=== PATIENT | female | born 2000 | race Caucasian/White ===

== ENCOUNTER 2023-02-27 08:40 | Outpatient (AMB) | payer BC, SELFPAY ==
[2023-02-27 08:49] VITALS: BP 110/62; PULSE 104; O2SAT 95; BMI 29.4
--- NOTE | 2023-02-27 08:49 | A.OFFPC_ITS ---
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 Previous -PCP was Dr. Camarillo. 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 Accompanied by: Self / Same As Patient Is last menstrual period known: Yes Last menstrual period: 02/22/23 Allergies No Known Allergies Allergy (Verified 02/27/23 09:02) Medication List - Last Reconciled 02/27/23 by Alexandra Gillette MD No Known Home Meds Tobacco use date assessed: 02/27/23 Dental Screening Dental Screen Date: 02/27/23 Did you have a dental visit in the last 12 months?: No Did you have a dental problem in the last 6 months where you did not have access to dental care?: No Was dental information given to patient?: Yes HPI HPI Comments History of Present Illness Details This is a 22-year-old female that comes for her physical exam. Complains of painful menstrual periods. No chest pain or shortness of breath. Has never had a Pap smear and will be referred to OBGYN. Also has moderate major depression and will be referred to counseling. No suicidal thoughts. [facility], [facility] Medical History Obesity (BMI 30-39.9) Surgical History No history of previous surgery Family History Mother No problems noted. Father High blood pressure Anxiety Hx of heat stroke Depression Paternal Grandmother Breast cancer Maternal Grandmother Breast cancer Social History (Updated 02/27/23 @ 09:05 by Alexandra Gillette MD) Housing: House Alcohol intake: current Alcohol intake frequency: a few times a month Alcohol type: beer and hard liquor Patient Tobacco Use Status: Never used Tobacco e-Cigarette/Vaping Use: Former Use service: No Current occupational status: employed Cognitive needs: No Hearing needs: No Vision needs: No Female Reproductive History Menstrual Date of last menstrual period: 02/22/23 Questionnaire PHQ-9 Over the last 2 weeks, how often have you been bothered by any of the following problems? 1. Little interest or pleasure in doing things: several days 2. Feeling down, depressed, or hopeless: more than half the days 3. Trouble falling or staying asleep, or sleeping too much: several days 4. Feeling tired or having little energy: nearly every day 5. Poor appetite or overeating: nearly every day 6. Feeling bad about yourself - or that you are a failure or have let yourself or your family down: nearly every day 7. Trouble concentrating on things, such as reading the newspaper or watching television: nearly every day 8. Moving or speaking so slowly that other people could have noticed. Or the opposite - being so fidgety or restless that you have been moving around a lot more than usual: not at all 9. Thoughts that you would be better off or of hurting yourself in some way: not at all Total score: 16 Depression Screening Interpretation: Positive (no suicidal thoughts) 68047 - PHQ-9 Billing: Yes Source: Developed by Drs. Jj Bellamy, Chayito Richardson, Viral Quesada and colleagues, with an educational ame from [employer]. Thrive Questionnaire Date Thrive assessed: 02/27/23 I am a: Patient What is your living situation today?: I have a steady place to live Within the past 12 months, did the food you bought not last and you didn't have the money to get more?: Never true Within the past 12 months, did you worry whether your food would run out before you got money to buy more?: Never true Do you have trouble paying for medicines?: No Do you have trouble getting transportation to medical appointments?: No Do you have trouble paying your heating and electricity bill?: No Do you have trouble taking care of your child, family member or friend?: No Do you have trouble with day-to-day activities such as bathing, preparing meals, shopping, managing finances, etc.?: No Are you currently unemployed and looking for a job?: No Are you interested in more education?: No Please select the resources that you would like help with: None Currently or been in a relationship where the following occur: no concerns reported AUDIT C Alcohol Use Questionnaire (AUDIT-C) 1. How often do you have a drink containing alcohol?: Monthly or less 2. How many drinks containing alcohol do you have on a typical day when you are drinking?: 3 or 4 3. How often do you have six or more drinks on one occasion?: Less than monthly Total Score: 3 Score Reviewed/Action Taken: Yes LIZETTE-7 AMB Questionnaire LIZETTE-7 Date LIZETTE - 7 assessed: 02/27/23 Feeling nervous, anxious, or on edge: 3 = Nearly every day Not being able to stop or control worryin = Nearly every day Worrying too much about different things: 3 = Nearly every day Trouble relaxin = More than half the days Being so restless that it is hard to sit still: 3 = Nearly every day Becoming easily annoyed or irritable: 3 = Nearly every day Feeling afraid as if something awful might happen: 2 = More than half the days Total LIZETTE-7 score (0-4 normal; 5-9 mild; 10-14 moderate; 15-21 severe): 19 Source: Developed by Drs. Jj Bellamy, Chayito Richardson, Viral Quesada and colleagues, with an educational ame from [employer]. LIZETTE-7 Assessment Billing LIZETTE-7 Assessment Tool: LIZETTE-7 Assessment 09817 Review of Systems Const All systems reviewed & are unremarkable except as noted in HPI and below Eyes Reports no additional complaints, Denies change in vision and Denies other visual disturbances Card Denies chest pain at rest, Denies chest pain with activity, Denies edema, Denies irregular heart rhythm, Denies claudication, Denies dyspnea, Denies dyspnea on exertion, Denies orthopnea, Denies paroxysmal nocturnal dyspnea and Denies slow heart rate Resp Denies cough, Denies dyspnea and Denies dyspnea on exertion GI Denies abdominal pain, Denies change in bowel habits, Denies excessive flatus, Denies nausea and Denies vomiting Denies urinary incontinence, Denies urinary hesitancy and Denies urinary urgency Musc Denies abnormal gait, Denies atrophy, Denies deformity and Denies limited range of motion Skin/Breast Denies bleeding lesions, Denies changing lesions and Denies rash Neuro Denies abnormal gait and Denies lack of coordination Physical exam (Primary Care) Vital Signs: Last Vital Signs Pulse 104 H 02/27/23 08:49 BP 110/62 02/27/23 08:49 Pulse Ox 95 02/27/23 08:49 Oxygen Delivery Method Room Air 02/27/23 08:49 BMI result Body Mass Index 29.4 Tobacco/Smoking Status: Tobacco use Status Tobacco use date assessed 02/27/23 02/27/23 08:58 Patient Tobacco Use Status Never used Tobacco 02/27/23 09:05 e-Cigarette/Vaping Use Former Use 02/27/23 09:05 PHQ-9: PHQ-9 Score PHQ-9: Total score 16 02/27/23 09:21 Depression Screening Interpretation: Positive (no suicidal thoughts) Thrive Assessment: Date of Thrive Assessment Date Thrive assessed 02/27/23 02/27/23 08:58 Currently or been in a relationship where the following occur: no concerns reported Const Orientation/consciousness: patient oriented x3 Eyes General: appearance normal, both eyes and all related structures Eyelids: Yes eyelids normal Conjunctivae: conjunctivae normal Neck Neck: Yes normal visual inspection and Yes supple Resp Effort & Inspection: normal respiratory effort Auscultation: clear to auscultation bilaterally Cardio Jugular venous distension: no JVD Rate: regular rate Rhythm: regular rhythm Heart sounds: S1 normal heart sound present and S2 normal heart sound present GI Inspection: Yes normal to inspection Palpation (GI): Soft to palpation and nontender Auscultation: normal bowel sounds Skin General skin exam: no rashes or lesions noted Neuro General: patient oriented x3 and no focal motor deficits Extrem General: Yes full ROM Psych Appearance: grossly normal Assessment and Plan Assessment & Plan (1) Annual physical exam: Code(s): Z00.00 - Encounter for general adult medical examination without abnormal findings Plan: Repeat in a year (2) Moderate major depression: Code(s): F32.1 - Major depressive disorder, single episode, moderate Plan: Referred to counseling. Orders: Referrals Counseling Referral F32.1 - Major depressive disorder, single episode, moderate SYNTHETIC FILAMENT SPINNER Referral Z12.4 - Encounter for screening for malignant neoplasm of cervix Medications: New nabumetone 750 mg PO BID 60 tabs 0RF 30 days Coding Level of Care Code Est Pt Prev Care 18-39y(83153) Diagnoses Annual physical exam Z00.00 Moderate major depression F32.1 Additional Codes LIZETTE-7 Assessment Billing - LIZETTE-7 Assessment Tool: LIZETTE-7 Assessment 75535 ([id number]) Time Spent (min) 33
== END 2023-02-27 09:13 | disposition home or self-care (01) ==
PROVIDERS: PCP Internal Medicine; Visit Provider Internal Medicine
DX: Z00.00 Encounter for general adult medical examination without abnormal findings (principal); F32.1 Major depressive disorder, single episode, moderate
CPT/HCPCS: 99395

== ENCOUNTER 2023-05-29 13:17 | Outpatient (AMB) | payer BC, SELFPAY ==
--- NOTE | 2023-05-29 13:46 | A.OFFVIS_ITS ---
Intake Vital Signs 05/29/23 13:47 Height 5 ft 3.5 in Weight 166 lb BMI 28.9 Intake Visit Reasons: New patient Annual Intake Note: Bad cramps when on menses. 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 She says she had a gap in care from about [age] but before that she went to her [facility]. She does not know if she got the Gardasil vaccine. She has been sexually active in the past but has not been so for a couple months. She is open to being tested for STIs. She is not sexually active and so does not need anything from for control for or that however she does want to talk about her periods which are getting more uncomfortable and crampier. She wants to find out about all the different control methods. She works at [employer] she lives with her father and stepmother she met Dr. Lopez once and she does not have any other health concerns she does not smoke. Physically active at her job and she walks her dog. [facility] Medical History Obesity (BMI 30-39.9) Surgical History No history of previous surgery Family History Mother No problems noted. Father High blood pressure Anxiety Hx of heat stroke Depression Paternal Grandmother Breast cancer Maternal Grandmother Breast cancer Social History Housing: House Alcohol intake: current Alcohol intake frequency: a few times a month Alcohol type: beer and hard liquor Patient Tobacco Use Status: Never used Tobacco e-Cigarette/Vaping Use: Former Use service: No Current occupational status: employed Cognitive needs: No Hearing needs: No Vision needs: No Female Reproductive History Menstrual Age of Menarche: 12 Duration of menses: 3-5 days Date of last menstrual period: 05/24/23 control method: none Total pregnancies: 0 Physical Exam Vital Signs: BMI result Body Mass Index 28.9 Const General: healthy appearing, comfortable, no acute distress, well developed and alert Nutritional Appearance: average body habitus Orientation/consciousness: patient oriented x3 Limitations: no limitations HEENT Head: Yes normocephalic Neck Neck: Yes normal visual inspection Thyroid: Thyroid normal Chest Chest palpation & inspection: normal inspection of the chest Breast/axilla inspection: normal inspection of the breasts and normal inspection of the axillae Breast/axilla palpation: normal palpation of the breasts and normal palpation of the axillae Resp Effort & Inspection: normal respiratory effort GI Inspection: Yes normal to inspection, No Abdominal wall edema and No distended Palpation (GI): Soft to palpation and nontender Other: Speculum exam within normal limits vagina pink moist with end of menses cervix nulliparous long close pink smooth very posterior and deep in pelvis uterus anteverted mobile nontender difficult to feel completely secondary to position adnexa not enlarged nontender good tone with Kegel. General: Yes bladder normal to palpation External Female Exam: normal external appearance and normal appearance of the urethra Speculum Exam - Vagina: normal appearance of the vagina, normal palpation and normal vaginal discharge Speculum Exam - Cervix: normal appearance of the cervix, normal palpation and nontender Bimanual exam- vagina & uterus: normal bimanual exam, normal palpation, uterine size normal, bladder normal to palpation, consistency normal, normal palpation, uterine mobility normal, uterine shape normal, No Cervical tenderness present, non-tender and no cervical motion tenderness Bimanual Exam- Adnexa, other: normal adnexae, no masses, normal and No adnexal tenderness Neuro General: patient oriented x3 Assessment & Plan Assessment & Plan (1) Screening for cervical cancer: Comment: first pap done 05/29/23. Patient will check to see if she got the Gardasil vaccine. Code(s): Z12.4 - Encounter for screening for malignant neoplasm of cervix (2) BCP ( control pills) initiation: Code(s): Z30.011 - Encounter for initial prescription of contraceptive pills (3) Encounter for screening examination for sexually transmitted disease: Code(s): Z11.3 - Encounter for screening for infections with a predominantly sexual mode of transmission (4) Primary dysmenorrhea: Code(s): N94.4 - Primary dysmenorrhea (5) Well woman exam with routine gynecological exam: Code(s): Z01.419 - Encounter for gynecological examination (general) (routine) without abnormal findings Plan -----Discussed in this visit the following: healthy balanced diet, regular and consistent exercise, getting recommended health screens, doing the best she can for her particular health concerns, kegel exercises, pap smear screening and followup recommendations, mammography screening and SBE, normal changes in cycles in her life stage--- .-I reviewed with the patient, all of the currently common used methods of control that are available. We reviewed how they work in the body, how they are taken, common side effects, uncommon side effects, precautions, and contraindications. -Discussed also factors that influence their effectiveness and use, and womens satisfaction with the method. -Discussed how each are used, and drawbacks of each method as well. -Methods covered included: condoms, control pills, control patches, control rings, Depo-Provera, Nexplanon, Mirena and Kyleena IUDs, and ParaGard IUDs. All of the above methods were covered in great detail including their side effect profiles and common experiences that women have and ways to mitigate against the negative experiences including attention to diet and exercise patient's with bleeding challenges that may occur her and efforts to time the initiation of the method to this start of the menstrual period. She decided that she would like to try pills. She is on day 6 of her period now and it is in dating so unless she was able to cone picker the pills on the way to work today and start them now it would be late to pick them up and start them tomorrow. She may want to wait till her next period to start the pills within the 1st 3 days of her. Discussed the rationale for starting them at the beginning of the. And expected and unexpected side effects including danger signs and what to do if she ever did experience anything like that. She is no family history of clotting disorders as far she knows. Both of her grandmothers had breast cancer, discussed breast cancer screening. I also recommend she consider getting tested for STIs as she does not think she ever has been so test ordered in system she can go when she wishes she is on the portal so she could look up negative results that way we would call her for anything positive. I prescribed enough control pills for year but we will see her in about 3 months to see how she is doing and check her blood pressure. She is going to check to see if she got the Gardasil vaccine and I recommend that she consider getting it if she has not gotten it. Note when ordering her control pills a warning came up that she had the contraindication of major depression however that is not on her medical chart in the history currently and even if it were current issue would not be an absolute contraindication to starting control pills. Orders: Orders CT NG by PCR Today Z11.3 - Encounter for screening for infections with a predominantly sexual mode of transmission Pap Smear Today Z12.4 - Encounter for screening for malignant neoplasm of cervix Hepatitis C Antibody Today N94.4 - Primary dysmenorrhea, Z01.419 - Encounter for gynecological examination (general) (routine) without abnormal findings, Z11.3 - Encounter for screening for infections with a predominantly sexual mode of transmission, Z12.4 - Encounter for screening for malignant neoplasm of cervix, Z30.011 - Encounter for initial prescription of contraceptive pills HIV Ab/Ag Today N94.4 - Primary dysmenorrhea, Z01.419 - Encounter for gynec ological examination (general) (routine) without abnormal findings, Z11.3 - Encounter for screening for infections with a predominantly sexual mode of transmission, Z12.4 - Encounter for screening for malignant neoplasm of cervix, Z30.011 - Encounter for initial prescription of contraceptive pills Syphilis Screen Today N94.4 - Primary dysmenorrhea, Z01.419 - Encounter for gynecological examination (general) (routine) without abnormal findings, Z11.3 - Encounter for screening for infections with a predominantly sexual mode of transmission, Z12.4 - Encounter for screening for malignant neoplasm of cervix, Z30.011 - Encounter for initial prescription of contraceptive pills Bacterial Vaginosis Panel Today Z20.2 - Contact with and (suspected) exposure to infections with a predominantly sexual mode of transmission Hepatitis B Surface Antigen Today N94.4 - Primary dysmenorrhea, Z01.419 - Encounter for gynecological examination (general) (routine) without abnormal findings, Z11.3 - Encounter for screening for infections with a predominantly sexual mode of transmission, Z12.4 - Encounter for screening for malignant neoplasm of cervix, Z30.011 - Encounter for initial prescription of contraceptive pills Medications: New desog-e.estradiol/e.estradiol 0.15-0.02 mgx21 /0.01 mg x 5 1 tab PO DAILY 84 tabs 4RF Coding Level of Care Code New Pt Prev Care 18-39yr([id number] Diagnoses Screening for cervical cancer Z12.4 BCP ( control pills) initiation Z30.011 Encounter for screening examination for sexually transmitted disease Z11.3 Primary dysmenorrhea N94.4 Well woman exam with routine gynecological exam Z01.419
[2023-05-29 13:47] VITALS: BMI 28.9
== END 2023-05-29 15:07 | disposition home or self-care (01) ==
PROVIDERS: PCP Internal Medicine; Visit Provider Advanced Practice Midwife
DX: Z01.419 Encounter for gynecological examination (general) (routine) without abnormal findings (principal); N94.4 Primary dysmenorrhea
CPT/HCPCS: 99385

== ENCOUNTER 2023-05-29 13:17 | Outpatient (REF) | payer BC, SELFPAY ==
[2023-05-30 10:54] LABS: CT PCR NOT DETECTED (Not Detect.); NG PCR NOT DETECTED (Not Detect.)
[2023-05-30 14:22] LABS: BV Int Neg Control Negative (Negative); BV Int Pos Control Positive (Positive)
== END 2023-05-29 13:18 | disposition home or self-care (01) ==
LOC: HO.LNP 13:17
PROVIDERS: PCP Internal Medicine; Visit Provider Advanced Practice Midwife
DX: Z12.4 Encounter for screening for malignant neoplasm of cervix (principal); Z20.2 Contact with and (suspected) exposure to infections with a predominantly sexual mode of transmission; N94.4 Primary dysmenorrhea
CPT/HCPCS: 0353U; 87480; 87510; 87660; 88142

== ENCOUNTER 2023-08-28 07:57 | Outpatient (AMB) | payer BC, SELFPAY ==
--- NOTE | 2023-08-28 07:58 | A.OFFPC_ITS ---
Vital Signs 08/28/23 07:59 Height 5 ft 3.5 in Weight 163 lb BMI 28.4 BP 110/72 Blood Pressure Location Lt brachial Position Sitting Intake Visit Reasons: depression Intake Note: Patient here for a follow up depression Electronic Wirer Required: No Accompanied by: Self / Same As Patient Allergies No Known Allergies Allergy (Verified 08/28/23 08:15) Medication List - Last Reconciled 08/28/23 by Alexandra Gillette MD desog-e.estradiol/e.estradiol 0.15-0.02 mgx21 /0.01 mg x 5 1 tab PO DAILY Tobacco use date assessed: 08/28/23 Dental Screening Dental Screen Date: 08/28/23 Did you have a dental visit in the last 12 months?: No Did you have a dental problem in the last 6 months where you did not have access to dental care?: No Was dental information given to patient?: Patient has dentist HPI HPI Comments History of Present Illness Details This is a 22-year-old female with moderate major depression that complains of easy bruising that started few months ago. Her depression has markedly improved with counseling that she started May 2023. Will order CBC for her easy bruising. No chest pain or shortness of breath. No change in bowel or bladder habits. [facility] Medical History (Updated 08/28/23 @ 08:21 by Alexandra Gillette MD) Potential exposure to STD Obesity (BMI 30-39.9) Surgical History No history of previous surgery Family History Mother No problems noted. Father High blood pressure Anxiety Hx of heat stroke Depression Paternal Grandmother Breast cancer Maternal Grandmother Breast cancer Social History Housing: House Alcohol intake: current Alcohol intake frequency: a few times a month Alcohol type: beer and hard liquor Patient Tobacco Use Status: Never used Tobacco e-Cigarette/Vaping Use: Former Use Second Hand Smoke Exposure: No service: No Current occupational status: employed Current occupational exposures/hazards: No Cognitive needs: No Hearing needs: No Vision needs: No Female Reproductive History Menstrual Age of Menarche: 12 Questionnaire PHQ-9 Over the last 2 weeks, how often have you been bothered by any of the following problems? 1. Little interest or pleasure in doing things: not at all 2. Feeling down, depressed, or hopeless: not at all 3. Trouble falling or staying asleep, or sleeping too much: not at all 4. Feeling tired or having little energy: not at all 5. Poor appetite or overeating: not at all 6. Feeling bad about yourself - or that you are a failure or have let yourself or your family down: not at all 7. Trouble concentrating on things, such as reading the newspaper or watching television: not at all 8. Moving or speaking so slowly that other people could have noticed. Or the opposite - being so fidgety or restless that you have been moving around a lot more than usual: not at all 9. Thoughts that you would be better off or of hurting yourself in some way: not at all Total score: 0 Depression Screening Interpretation: Negative Depression Screening Done: Yes 16254 - PHQ-9 Billing: Yes Source: Developed by Drs. Jj Bellamy, Chayito Richardson, Viral Quesada and colleagues, with an educational ame from [employer]. Thrive Questionnaire Date Thrive assessed: 08/28/23 I am a: Patient What is your living situation today?: I have a steady place to live Within the past 12 months, did the food you bought not last and you didn't have the money to get more?: Never true Within the past 12 months, did you worry whether your food would run out before you got money to buy more?: Never true Do you have trouble paying for medicines?: No Do you have trouble getting transportation to medical appointments?: No Do you have trouble paying your heating and electricity bill?: No Do you have trouble taking care of your child, family member or friend?: No Do you have trouble with day-to-day activities such as bathing, preparing meals, shopping, managing finances, etc.?: No Are you currently unemployed and looking for a job?: No Are you interested in more education?: No Please select the resources that you would like help with: None Currently or been in a relationship where the following occur: no concerns reported THRIVE Score: 0 AUDIT C Alcohol Use Questionnaire (AUDIT-C) 1. How often do you have a drink containing alcohol?: Monthly or less 2. How many drinks containing alcohol do you have on a typical day when you are drinking?: 1 or 2 3. How often do you have six or more drinks on one occasion?: Never Total Score: 1 LIZETTE-7 AMB Questionnaire LIZETTE-7 Date LIZETTE - 7 assessed: 08/28/23 Feeling nervous, anxious, or on edge: 2 = More than half the days Not being able to stop or control worryin = More than half the days Worrying too much about different things: 1 = Several days Trouble relaxin = Several days Being so restless that it is hard to sit still: 2 = More than half the days Becoming easily annoyed or irritable: 1 = Several days Feeling afraid as if something awful might happen: 1 = Several days Total LIZETTE-7 score (0-4 normal; 5-9 mild; 10-14 moderate; 15-21 severe): 10 Source: Developed by Drs. Jj Bellamy, Chayito Richardson, Viral Quesada and colleagues, with an educational ame from [employer]. LIZETTE-7 Assessment Billing LIZETTE-7 Assessment Tool: LIZETTE-7 Assessment 55178 Review of Systems Const All systems reviewed & are unremarkable except as noted in HPI and below Eyes Reports no additional complaints, Denies change in vision and Denies other visual disturbances Card Denies chest pain at rest, Denies chest pain with activity, Denies edema, Denies irregular heart rhythm, Denies claudication, Denies dyspnea, Denies dyspnea on exertion, Denies orthopnea, Denies paroxysmal nocturnal dyspnea and Denies slow heart rate Resp Denies cough, Denies dyspnea and Denies dyspnea on exertion GI Denies abdominal pain, Denies change in bowel habits, Denies excessive flatus, Denies nausea and Denies vomiting Denies urinary incontinence, Denies urinary hesitancy and Denies urinary urgency Musc Denies abnormal gait, Denies atrophy, Denies deformity and Denies limited range of motion Skin/Breast Denies bleeding lesions, Denies changing lesions and Denies rash Neuro Denies abnormal gait, Denies behavioral changes and Denies lack of coordination Psych Denies behavioral changes Physical exam (Primary Care) Vital Signs: Last Vital Signs BP 110/72 08/28/23 07:59 BMI result Body Mass Index 28.4 Tobacco/Smoking Status: Tobacco use Status Tobacco use date assessed 08/28/23 08/28/23 08:09 Patient Tobacco Use Status Never used Tobacco 08/28/23 08:01 e-Cigarette/Vaping Use Former Use 08/28/23 08:01 PHQ-9: PHQ-9 Score PHQ-9: Total score 0 08/28/23 08:20 Depression Screening Interpretation: Negative Thrive Assessment: Date of Thrive Assessment Date Thrive assessed 08/28/23 08/28/23 08:09 Currently or been in a relationship where the following occur: no concerns reported Eyes General: appearance normal, both eyes and all related structures Eyelids: Yes eyelids normal Conjunctivae: conjunctivae normal Neck Neck: Yes normal visual inspection and Yes supple Resp Effort & Inspection: normal respiratory effort Auscultation: clear to auscultation bilaterally Cardio Jugular venous distension: no JVD Rate: regular rate Rhythm: regular rhythm Heart sounds: S1 normal heart sound present and S2 normal heart sound present Extrem General: Yes full ROM Assessment and Plan Assessment & Plan (1) Moderate major depression: Code(s): F32.1 - Major depressive disorder, single episode, moderate Plan: Continue counseling. (2) Easy bruising: Code(s): R23.3 - Spontaneous ecchymoses Plan: CBC ordered. Orders: Orders Complete Blood Count Auto Diff Today R23.3 - Spontaneous ecchymoses Lipid Panel 6 Months Z00.00 - Encounter for general adult medical examination without abnormal findings Comprehensive [place]. Panel Fast 6 Months Z00.00 - Encounter for general adult medical examination without abnormal findings Coding Level of Care Code Est Pt Level 3 (70738) Diagnoses Moderate major depression F32.1 Easy bruising R23.3 Additional Codes LIZETTE-7 Assessment Billing - LIZETTE-7 Assessment Tool: LIZETTE-7 Assessment 50960 ([id number]) Time Spent (min) 19
[2023-08-28 07:59] VITALS: BP 110/72; BMI 28.4
== END 2023-08-28 08:23 | disposition home or self-care (01) ==
PROVIDERS: PCP Internal Medicine; Visit Provider Internal Medicine
DX: R23.3 Spontaneous ecchymoses (principal); F32.1 Major depressive disorder, single episode, moderate
CPT/HCPCS: 99213

== ENCOUNTER 2023-08-28 08:28 | Outpatient (REF) | payer BC, SELFPAY ==
[2023-08-28 08:52] LABS: MANUAL DIFF FLAG NO
[2023-08-28 09:33] LABS: Basophils Absolute Auto 0.1 X10*3/uL (0.0-0.2); Basophils Percent Auto 0.9 % (0-2); Eosinophils Absolute Auto 0.5 X10*3/uL (0.0-0.4); Hematocrit 40.4 % (37.0-47.0); Hemoglobin 13.6 g/dl (12.0-16.0); Imm Gran Abs Auto 0.01 X10*3/uL (0.00-0.03); Imm Gran Pct Auto 0.2 % (0.0-0.4); Lymphocytes Absolute Auto 1.5 X10*3/uL (1.2-4.9); Lymphocytes Percent Auto 28.2 % (20-40); Mean Corpuscular HGB Conc 33.7 g/dl (31.0-35.0); Mean Corpuscular Hemoglobin 30.4 pg (27.0-33.0); Mean Corpuscular Volume 90.2 fL (80.0-98.0); Mean Platelet Volume 10.5 fL (9.4-12.3); Monocytes Absolute Auto 0.4 X10*3/uL (0.1-1.2); Neutrophils Percent Auto 54.7 % (45-73); Platelet Count 251 X10*3/uL (160-400); Red Blood Count 4.48 X10*6/uL (4.20-5.50); Red Cell Distribution Width 11.9 % (11.0-16.0); White Blood Count 5.4 X10*3/uL (4.8-10.8)
== END 2023-08-28 08:29 | disposition home or self-care (01) ==
LOC: HO.LAB 08:28
PROVIDERS: PCP Internal Medicine; Visit Provider Internal Medicine
DX: R23.3 Spontaneous ecchymoses (principal)
CPT/HCPCS: 36415; 85025

== ENCOUNTER 2023-08-28 09:14 | Outpatient (AMB) | payer BC, SELFPAY ==
--- NOTE | 2023-08-28 09:22 | MHC.OFFVIS ---
Intake Vital Signs 08/28/23 09:27 Height 5 ft 3.5 in Weight 161 lb BMI 28.1 BP 116/68 Intake Visit Reasons: control follow up Oleomargarine Maker Required: No Allergies No Known Allergies Allergy (Verified 08/28/23 09:28) Medication List - Last Reconciled 08/28/23 by Marija Snell CNM desog-e.estradiol/e.estradiol 0.15-0.02 mgx21 /0.01 mg x 5 1 tab PO DAILY Is last menstrual period known: Yes Last menstrual period: 08/10/23 Do you need a note to return to daycare/school/sports/work: No HPI control follow up HPI Details Patient is here for control pill follow-up she feels she is doing really well on the pills she noticed an improvement even with the very 1st. She started the pills on day 2 of her period and immediately got less crampy unless heavy and she did not even need to take anything to deal with the cramps or pain and the next period was the same she did notice some more little clots she uses tampons but overall it is just 4 days and not very heavy and not painful she wants to stay on the pills she is happy on them she does not smoke and overall her periods are better she still does headaches with her menses but she always has. She said her stepmother told her that if she was on control pills and then stopped to try to get she would have trouble so she wanted to ask about that and told her that that was not true and discussed return to fertility after stopping pills can be immediate.. [facility] Medical History Potential exposure to STD Obesity (BMI 30-39.9) Surgical History No history of previous surgery Family History Mother No problems noted. Father High blood pressure Anxiety Hx of heat stroke Depression Paternal Grandmother Breast cancer Maternal Grandmother Breast cancer Social History Housing: House Alcohol intake: current Alcohol intake frequency: a few times a month Alcohol type: beer and hard liquor Patient Tobacco Use Status: Never used Tobacco e-Cigarette/Vaping Use: Former Use Second Hand Smoke Exposure: No service: No Current occupational status: employed Current occupational exposures/hazards: No Cognitive needs: No Hearing needs: No Vision needs: No Female Reproductive History Menstrual Age of Menarche: 12 Duration of menses: 3-5 days Date of last menstrual period: 08/10/23 control method: pills Total pregnancies: 0 Date of last pap smear: 05/31/23 (negative) History of abnormal pap smear: No Physical Exam Vital Signs: Last Vital Signs BP 116/68 08/28/23 09:27 BMI result Body Mass Index 28.1 Assessment & Plan Assessment & Plan (1) Primary dysmenorrhea: Code(s): N94.4 - Primary dysmenorrhea (2) Screening for cervical cancer: Comment: first pap done 05/29/23=negative. Patient will check to see if she got the Gardasil vaccine.; Code(s): Z12.4 - Encounter for screening for malignant neoplasm of cervix (3) Surveillance for control, oral contraceptives: Code(s): Z30.41 - Encounter for surveillance of contraceptive pills Plan See HPI reviewed control pills how she is taking them what to do if missed pills side effects to watch out for and danger signs and what to do. Reviewed stopping pills and return to fertility and why there is a quick return to fertility. Discussed vitamins with folic acid if she is ever planning a future . We will see her in 1 year and if she does not have a year's prescription I will send it. She had no further questions discussed safer sex as well discussed missed pills and what to do. Medications: Refilled desog-e.estradiol/e.estradiol 0.15-0.02 mgx21 /0.01 mg x 5 1 tab PO DAILY 84 tabs 4RF Coding Level of Care Code Est Pt Level 3 (14934) Diagnoses Primary dysmenorrhea N94.4 Screening for cervical cancer Z12.4 Surveillance for control, oral contraceptives Z30.41
[2023-08-28 09:27] VITALS: BP 116/68; BMI 28.1
== END 2023-08-28 10:12 | disposition home or self-care (01) ==
LOC: HO.HWSM 09:15
PROVIDERS: PCP Internal Medicine; Visit Provider Advanced Practice Midwife
DX: N94.4 Primary dysmenorrhea (principal); Z30.41 Encounter for surveillance of contraceptive pills
CPT/HCPCS: 99213

== ENCOUNTER 2024-02-28 10:04 | Outpatient (AMB) | payer OTHER, SELFPAY ==
[2024-02-28 10:14] VITALS: BP 110/68; BMI 25.0
--- NOTE | 2024-02-28 10:14 | MHC.PC.OV ---
Vital Signs 02/28/24 10:14 Height 5 ft 3.5 in Weight 143 lb 8 oz BMI 25.0 BP 110/68 Blood Pressure Location Lt brachial Position Sitting Intake Visit Reasons: Annual Exam Intake Note: Patient here for an annual physical exam Associate Director Data & Analytics Required: No Accompanied by: Self / Same As Patient Allergies No Known Allergies Allergy (Verified 02/28/24 10:34) Medication List - Last Reconciled 02/28/24 by Alexandra Gillette MD desog-e.estradiol/e.estradiol 0.15-0.02 mgx21 /0.01 mg x 5 1 tab PO DAILY Tobacco use date assessed: 08/28/23 Dental Screening Dental Screen Date: 08/28/23 HPI HPI Comments History of Present Illness Details This is a 23-year-old female with mild major depression that comes for her physical exam. Depression is follow by counseling. Pap smear done less than a year ago was normal. Has noticed and unintentional weight loss. No chest pain or shortness on breath. [facility] Medical History (Updated 02/28/24 @ 11:40 by Alexandra Gillette MD) Moderate major depression Potential exposure to STD Obesity (BMI 30-39.9) Surgical History No history of previous surgery Family History Mother No problems noted. Father High blood pressure Anxiety Hx of heat stroke Depression Paternal Grandmother Breast cancer Maternal Grandmother Breast cancer Social History Housing: House Alcohol intake: current Alcohol intake frequency: a few times a month Alcohol type: beer and hard liquor Patient Tobacco Use Status: Never used Tobacco e-Cigarette/Vaping Use: Former Use Second Hand Smoke Exposure: No service: No Current occupational status: employed Current occupational exposures/hazards: No Cognitive needs: No Hearing needs: No Vision needs: Yes Female Reproductive History Menstrual Age of Menarche: 12 Questionnaire PHQ-9 Over the last 2 weeks, how often have you been bothered by any of the following problems? 1. Little interest or pleasure in doing things: not at all 2. Feeling down, depressed, or hopeless: several days 3. Trouble falling or staying asleep, or sleeping too much: several days 4. Feeling tired or having little energy: several days 5. Poor appetite or overeating: nearly every day 6. Feeling bad about yourself - or that you are a failure or have let yourself or your family down: several days 7. Trouble concentrating on things, such as reading the newspaper or watching television: several days 8. Moving or speaking so slowly that other people could have noticed. Or the opposite - being so fidgety or restless that you have been moving around a lot more than usual: not at all 9. Thoughts that you would be better off or of hurting yourself in some way: not at all Total score: 8 Depression Screening Interpretation: Positive Depression Screening Follow-up: Existing condition, Community Mental Health Worker F/U and Follow-up Visit Requested Depression Screening Done: Yes 93416 - PHQ-9 Billing: Yes Source: Developed by Drs. Jj Bellamy, Chayito Richardson, Viral Quesada and colleagues, with an educational ame from [employer]. Thrive Questionnaire Date Thrive assessed: 02/28/24 I am a: Patient What is your living situation today?: I have a steady place to live Within the past 12 months, did the food you bought not last and you didn't have the money to get more?: Never true Within the past 12 months, did you worry whether your food would run out before you got money to buy more?: Never true Do you have trouble paying for medicines?: No Do you have trouble getting transportation to medical appointments?: No Do you have trouble paying your heating and electricity bill?: No Do you have trouble taking care of your child, family member or friend?: No Do you have trouble with day-to-day activities such as bathing, preparing meals, shopping, managing finances, etc.?: No Are you currently unemployed and looking for a job?: No Are you interested in more education?: No Please select the resources that you would like help with: None Currently or been in a relationship where the following occur: No concerns reported THRIVE Score: 0 AUDIT C Alcohol Use Questionnaire (AUDIT-C) 1. How often do you have a drink containing alcohol?: 2-4 times a month 2. How many drinks containing alcohol do you have on a typical day when you are drinking?: 3 or 4 3. How often do you have six or more drinks on one occasion?: Less than monthly Total Score: 4 LIZETTE-7 AMB Questionnaire LIZETTE-7 Date LIZETTE - 7 assessed: 02/28/24 Feeling nervous, anxious, or on edge: 1 = Several days Not being able to stop or control worryin = More than half the days Worrying too much about different things: 1 = Several days Trouble relaxin = Several days Being so restless that it is hard to sit still: 2 = More than half the days Becoming easily annoyed or irritable: 2 = More than half the days Feeling afraid as if something awful might happen: 0 = Not at all Total LIZETTE-7 score (0-4 normal; 5-9 mild; 10-14 moderate; 15-21 severe): 9 Source: Developed by Drs. Jj Bellamy, Chayito Richardson, Viral Quesada and colleagues, with an educational ame from [employer]. LIZETTE-7 Assessment Billing LIZETTE-7 Assessment Tool: LIZETTE-7 Assessment 87392 Review of Systems Const All systems reviewed & are unremarkable except as noted in HPI and below Card Denies chest pain at rest, Denies chest pain with activity, Denies edema, Denies irregular heart rhythm, Denies claudication, Denies dyspnea, Denies dyspnea on exertion, Denies orthopnea, Denies paroxysmal nocturnal dyspnea and Denies slow heart rate Resp Denies cough, Denies dyspnea and Denies dyspnea on exertion GI Denies abdominal pain, Denies change in bowel habits, Denies excessive flatus, Denies nausea and Denies vomiting Denies urinary incontinence, Denies urinary hesitancy and Denies urinary urgency Musc Denies abnormal gait, Denies atrophy, Denies deformity and Denies limited range of motion Skin/Breast Denies bleeding lesions, Denies changing lesions and Denies rash Neuro Denies abnormal gait and Denies lack of coordination Physical exam (Primary Care) Vital Signs: Last Vital Signs BP 110/68 02/28/24 10:14 BMI result Body Mass Index 25.0 Tobacco/Smoking Status: Tobacco use Status Tobacco use date assessed 08/28/23 02/28/24 10:19 Patient Tobacco Use Status Never used Tobacco 02/28/24 10:19 e-Cigarette/Vaping Use Former Use 02/28/24 10:19 PHQ-9: PHQ-9 Score PHQ-9: Total score 8 02/28/24 10:38 Depression Screening Interpretation: Positive Depression Screening Follow-up: Existing condition, Community Mental Health Worker F/U and Follow-up Visit Requested Thrive Assessment: Date of Thrive Assessment Date Thrive assessed 02/28/24 02/28/24 10:19 Currently or been in a relationship where the following occur: No concerns reported HENMT Head: Yes normal to inspection, Yes normocephalic and Yes atraumatic Ears: external ears normal Eyes General: appearance normal, both eyes and all related structures Eyelids: Yes eyelids normal Conjunctivae: conjunctivae normal Neck Neck: Yes normal visual inspection and Yes supple Resp Effort & Inspection: normal respiratory effort Auscultation: clear to auscultation bilaterally Cardio Jugular venous distension: no JVD Rate: regular rate Rhythm: regular rhythm Heart sounds: S1 normal heart sound present and S2 normal heart sound present GI Inspection: Yes normal to inspection Palpation (GI): Soft to palpation and nontender Auscultation: normal bowel sounds Skin General skin exam: no rashes or lesions noted Neuro General: no focal motor deficits Extrem General: Yes full ROM Psych Appearance: grossly normal Assessment and Plan Assessment & Plan (1) Annual physical exam: Code(s): Z00.00 - Encounter for general adult medical examination without abnormal findings Plan: Repeat in a year. (2) Mild major depression: Code(s): F32.0 - Major depressive disorder, single episode, mild Plan: Follow-up with counseling. (3) Weight loss: Code(s): R63.4 - Abnormal weight loss Plan: Fasting labs ordered. Orders: Orders HIV Ab/Ag Today Z11.4 - Encounter for screening for human immunodeficiency virus [HIV] Lipid Panel Today Z00.00 - Encounter for general adult medical examination without abnormal findings Thyroid Stimulating Hormone Today R63.4 - Abnormal weight loss Comprehensive [place]. Panel Fast Today Z00.00 - Encounter for general adult medical examination without abnormal findings Coding Level of Care Code Est Pt Level 3 (83641) Est Pt Prev Care 18-39y(37439) Diagnoses Annual physical exam Z00.00 Mild major depression F32.0 Weight loss R63.4 Additional Codes LIZETTE-7 Assessment Billing - LIZETTE-7 Assessment Tool: LIZETTE-7 Assessment 94072 ([id number]) Time Spent (min) 31
== END 2024-02-28 10:46 | disposition home or self-care (01) ==
PROVIDERS: PCP Internal Medicine; Visit Provider Internal Medicine
DX: Z00.00 Encounter for general adult medical examination without abnormal findings (principal); R63.4 Abnormal weight loss; F32.0 Major depressive disorder, single episode, mild
CPT/HCPCS: 99395

== ENCOUNTER 2024-03-06 14:57 | Outpatient (REF) | payer OTHER, SELFPAY ==
[2024-03-06 16:14] LABS: Alanine Aminotransferase 18 U/L (0-31); Albumin Level 4.2 g/dL (3.5-5.0); Alkaline Phosphatase 40 U/L (39-117); Anion Gap 12 (12-20); Aspartate Amino Transferase 16 U/L (5-31); Bilirubin Total 0.6 mg/dL (0.0-1.0); Blood Urea Nitrogen 15 mg/dL (9-16); Calcium 9.6 mg/dL (8.4-10.2); Carbon Dioxide 23 mmol/L (22-29); Chloride 106 mmol/L (96-108); Cholesterol 190 mg/dL (<200); Estimated Glomerular Filt Rate > 60; Glucose Fasting 76 mg/dL (60-99); HDL Cholesterol 69 mg/dL (>40); LDL Cholesterol Calculated 102 mg/dL (<100); Potassium 4.2 mmol/L (3.3-5.1); Sodium 137 mmol/L (135-145); Total Protein 7.2 g/dL (6.5-8.0); Triglycerides 95 mg/dL (<150)
[2024-03-06 16:30] LABS: Thyroid Stimulating Hormone 0.38 uIU/mL (0.32-4.0)
[2024-03-07 04:16] LABS: HIV AB/AG Nonreactive (Nonreactive); HIV Num 1 0.06 S/CO (0.00-0.99)
== END 2024-03-06 14:58 | disposition home or self-care (01) ==
LOC: HO.LAB 14:57
PROVIDERS: Absent Provider Advanced Practice Midwife; PCP Internal Medicine; Visit Provider Internal Medicine
DX: Z00.00 Encounter for general adult medical examination without abnormal findings (principal); R63.4 Abnormal weight loss; Z11.4 Encounter for screening for human immunodeficiency virus [HIV]
CPT/HCPCS: 36415; 80053; 80061; 84443; 87389

== ENCOUNTER 2024-06-03 09:04 | Outpatient (REF) | payer BC, SELFPAY ==
[2024-06-04 03:48] LABS: CT PCR NOT DETECTED (Not Detect.); NG PCR NOT DETECTED (Not Detect.)
[2024-06-04 13:00] LABS: Bacterial Vaginosis PCR NEGATIVE (Negative); Candida Group PCR NOT DETECTED (Not Detect); Candida glab krusei PCR NOT DETECTED (Not Detect); Trichomonas vaginalis PCR NOT DETECTED (Not Detect)
== END 2024-06-03 09:05 | disposition home or self-care (01) ==
LOC: HO.LAB 09:04
PROVIDERS: PCP Internal Medicine; Visit Provider Advanced Practice Midwife
DX: N89.8 Other specified noninflammatory disorders of vagina (principal)
CPT/HCPCS: 0352U; 87491; 87591

== ENCOUNTER 2024-06-03 09:04 | Outpatient (AMB) | payer BC, SELFPAY ==
[2024-06-03 09:17] VITALS: BP 110/62; BMI 26.5
--- NOTE | 2024-06-03 09:17 | A.OFFVIS_ITS ---
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 She feels she is doing well on the pills her periods are so much better and less crampy and less heavy and she is happy with them she does want to review side effects to OCPs as she does feels she notices some difference in but it is not huge we did review common experiences mood and libido changes on OCPs. She is currently working at [employer] very physically active. She has been sexually active this past year so is open to testing for STIs her last Pap smear done last year was negative. [facility] Medical History Moderate major depression Potential exposure to STD Obesity (BMI 30-39.9) Surgical History No history of previous surgery Family History Mother No problems noted. Father High blood pressure Anxiety Hx of heat stroke Depression Paternal Grandmother Breast cancer Maternal Grandmother Breast cancer Social History Housing: House Alcohol intake: current Alcohol intake frequency: a few times a month Alcohol type: beer and hard liquor Patient Tobacco Use Status: Never used Tobacco e-Cigarette/Vaping Use: Former Use Second Hand Smoke Exposure: No service: No Current occupational status: employed Current occupational exposures/hazards: No Cognitive needs: No Hearing needs: No Vision needs: Yes Female Reproductive History Menstrual Age of Menarche: 12 Duration of menses: 3-5 days Date of last menstrual period: 05/17/24 control method: pills Total pregnancies: 0 Date of last pap smear: 05/31/23 (negative) History of abnormal pap smear: No Physical Exam Vital Signs: Last Vital Signs BP 110/62 06/03/24 09:17 BMI result Body Mass Index 26.5 Const General: healthy appearing, comfortable, no acute distress, well developed and alert Nutritional Appearance: average body habitus Orientation/consciousness: patient oriented x3 Limitations: no limitations HEENT Head: Yes normocephalic Neck Neck: Yes normal visual inspection Chest Chest palpation & inspection: normal inspection of the chest Breast/axilla inspection: normal inspection of the breasts and normal inspection of the axillae Breast/axilla palpation: normal palpation of the breasts and normal palpation of the axillae Resp Effort & Inspection: normal respiratory effort GI Inspection: Yes normal to inspection, No Abdominal wall edema and No distended Palpation (GI): Soft to palpation and nontender Other: Normal external exam vagina pink and moist cervix nulliparous pink slightly reddened moist healthy appearing normal healthy appearing clear mucus cervix long close thick mobile nontender uterus difficult feel but midposition mobile nontender not enlarged adnexa not enlarged good tone with Kegel. General: Yes bladder normal to palpation External Female Exam: normal external appearance and normal appearance of the urethra Speculum Exam - Vagina: normal appearance of the vagina, normal palpation and normal vaginal discharge Speculum Exam - Cervix: normal appearance of the cervix, normal palpation and nontender Bimanual exam- vagina & uterus: normal bimanual exam, normal palpation, uterine size normal, bladder normal to palpation, consistency normal, normal palpation, uterine mobility normal, uterine shape normal, No Cervical tenderness present, non-tender and no cervical motion tenderness Bimanual Exam- Adnexa, other: normal adnexae, no masses, normal and No adnexal tenderness Neuro General: patient oriented x3 Results Reviewed Results Reviewed: [place]: Devi Celestin Age/Sex: 22/F Attending: Marija Snell CNM : 2000 Submitted by: Marija Snell CNM Copies to: Alexandra Gaxiola MD MR #: [id number] Status: DEP REF Collected: 05/29/23 Location: [facility] Received: 05/31/23 Interpretation Satisfactory for evaluation. Mild inflammation. Negative for intraepithelial lesion or malignancy. Clinical Information LMP: 05/24/23 Previous PAP test: First pap Material Received ThinPrep-Cervical Copies To Marija Snell CNM [address] [place] [address] [address]. [address] [place] [address] Alexandra Gaxiola MD [address] [place] [address] [address]. [address] [place] [address] Electronically Signed By: YUMIKO Ahuja (ASCP) 06/04/23 1342 The Pap Test is a screening procedure with the inherent possibility of both false negative and false positive results. Results should be interpreted in the context of historic and current clinical findings. Reliability of the Pap Test is enhanced by performing the test on a regular repetitive basis. Patient: Devi Celestin Age/Sex: 22/F MR#: [id number] Page 1 of 1 Assessment & Plan Assessment & Plan (1) Screening for cervical cancer: Comment: first pap done 05/29/23=negative. 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 we get the vaccine if she wants it and has not had it, Code(s): Z12.4 - Encounter for screening for malignant neoplasm of cervix Category: Medical (2) Primary dysmenorrhea: Comment: much improved w ocps Code(s): N94.4 - Primary dysmenorrhea Category: Medical (3) Well woman exam with routine gynecological exam: Code(s): Z01.419 - Encounter for gynecological examination (general) (routine) without abnormal findings Category: Medical (4) Surveillance for control, oral contraceptives: Code(s): Z30.41 - Encounter for surveillance of contraceptive pills Category: Medical (5) Encounter for screening examination for sexually transmitted disease: Code(s): Z11.3 - Encounter for screening for infections with a predominantly sexual mode of transmission Category: Medical Plan -----Discussed in this visit the following: healthy balanced diet, regular and consistent exercise, getting recommended health screens, doing the best she can for her particular health concerns, kegel exercises, pap smear screening and followup recommendations, mammography screening and SBE, normal changes in cycles in her life stage--- . Offered blood work for testing for STIs and she did accept she can go to the lab whenever she wishes.. Reviewed the come mood changes with OCPs in eating decreased libido slightly decreased mood overall with usually a leveling out of menstrual mood changes.. Reviewed self-care in general safer sex healthy diet and activity she is feeling pretty good where she is now she does note that she is more physically active at her job at [employer]. 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 Sent refill for her OCPs for 1 year. Orders: Orders Hepatitis C Antibody Today Z01.419 - Encounter for gynecological examination (general) (routine) without abnormal findings, Z11.3 - Encounter for screening for infections with a predominantly sexual mode of transmission, Z12.4 - Encount er for screening for malignant neoplasm of cervix, Z30.41 - Encounter for surveillance of contraceptive pills Hepatitis B Surface Antigen Today Z01.419 - Encounter for gynecological examination (general) (routine) without abnormal findings, Z11.3 - Encounter for screening for infections with a predominantly sexual mode of transmission, Z12.4 - Encounter for screening for malignant neoplasm of cervix, Z30.41 - Encounter for surveillance of contraceptive pills Syphilis Screen Today Z01.419 - Encounter for gynecological examination (general) (routine) without abnormal findings, Z11.3 - Encounter for screening for infections with a predominantly sexual mode of transmission, Z12.4 - Encounter for screening for malignant neoplasm of cervix, Z30.41 - Encounter for surveillance of contraceptive pills HIV Ab/Ag Today Z01.419 - Encounter for gynecological examination (general) (routine) without abnormal findings, Z11.3 - Encounter for screening for infections with a predominantly sexual mode of transmission, Z12.4 - Encounter for screening for malignant neoplasm of cervix, Z30.41 - Encounter for surveillance of contraceptive pills Medications: Refilled desog-e.estradiol/e.estradiol 0.15-0.02 mgx21 /0.01 mg x 5 1 tab PO DAILY 84 tabs 4RF Coding Level of Care Code Est Pt Prev Care 18-39y(55084) Diagnoses Screening for cervical cancer Z12.4 Primary dysmenorrhea N94.4 Well woman exam with routine gynecological exam Z01.419 Surveillance for control, oral contraceptives Z30.41 Encounter for screening examination for sexually transmitted disease Z11.3
== END 2024-06-03 11:10 | disposition home or self-care (01) ==
PROVIDERS: PCP Internal Medicine; Visit Provider Advanced Practice Midwife
DX: Z01.419 Encounter for gynecological examination (general) (routine) without abnormal findings (principal); N94.4 Primary dysmenorrhea
CPT/HCPCS: 99395; 99459

== ENCOUNTER 2025-03-12 08:28 | Outpatient (AMB) | payer OTHER, SELFPAY ==
[2025-03-12 08:31] VITALS: BP 118/76; PULSE 66; O2SAT 99; BMI 28.9
--- NOTE | 2025-03-12 08:31 | A.OFFPC_ITS ---
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 Accompanied by: Self / Same As Patient Allergies No Known Allergies Allergy (Verified 03/12/25 08:57) Medication List - Last Reconciled 03/12/25 by Alexandra Gillette MD desog-e.estradiol/e.estradiol 0.15-0.02 mgx21 /0.01 mg x 5 1 tab PO DAILY Tobacco use date assessed: 03/12/25 Dental Screening Dental Screen Date: 03/12/25 Did you have a dental visit in the last 12 months?: Yes Did you have a dental problem in the last 6 months where you did not have access to dental care?: No Was dental information given to patient?: Patient has dentist HPI HPI Comments History of Present Illness Details Patient is here for physical exam. Last Tdap vaccine was done about 8- 9 years ago. Pap smear done 2022. No acute complaints. Last labs were normal. Has moderate recurrent major depression with a PHQ-9 of 10 and follows with counseling. [facility] Medical History (Updated 03/12/25 @ 09:05 by Alexandra Gillette MD) Moderate major depression Mild major depression Potential exposure to STD Obesity (BMI 30-39.9) Surgical History No history of previous surgery Family History Mother No problems noted. Father High blood pressure Anxiety Hx of heat stroke Depression Paternal Grandmother Breast cancer Maternal Grandmother Breast cancer Social History Housing: House Alcohol intake: current Alcohol intake frequency: a few times a month Alcohol type: beer and hard liquor Patient Tobacco Use Status: Never used Tobacco e-Cigarette/Vaping Use: Former Use Second Hand Smoke Exposure: No service: No Current occupational status: employed Current occupational exposures/hazards: No Cognitive needs: No Hearing needs: No Vision needs: Yes Female Reproductive History Menstrual Age of Menarche: 12 Questionnaire PHQ-9 Over the last 2 weeks, how often have you been bothered by any of the following problems? 1. Little interest or pleasure in doing things: not at all 2. Feeling down, depressed, or hopeless: several days 3. Trouble falling or staying asleep, or sleeping too much: nearly every day 4. Feeling tired or having little energy: nearly every day 5. Poor appetite or overeating: several days 6. Feeling bad about yourself - or that you are a failure or have let yourself or your family down: not at all 7. Trouble concentrating on things, such as reading the newspaper or watching television: more than half the days 8. Moving or speaking so slowly that other people could have noticed. Or the opposite - being so fidgety or restless that you have been moving around a lot more than usual: not at all 9. Thoughts that you would be better off or of hurting yourself in some way: not at all Total score: 10 Depression Screening Interpretation: Positive Depression Screening Follow-up: Existing condition, Community Mental Health Worker F/U and Follow-up Visit Requested Depression Screening Done: Yes 70754 - PHQ-9 Billing: Yes Source: Developed by Drs. Jj Bellamy, Chayito Richardson, Viral Quesada and colleagues, with an educational ame from [employer]. Thrive Questionnaire Date Thrive assessed: 03/12/25 I am a: Patient What is your living situation today?: I have a steady place to live Within the past 12 months, did the food you bought not last and you didn't have the money to get more?: Never true Within the past 12 months, did you worry whether your food would run out before you got money to buy more?: Never true Do you have trouble paying for medicines?: No Do you have trouble getting transportation to medical appointments?: No Do you have trouble paying your heating and electricity bill?: No Do you have trouble taking care of your child, family member or friend?: No Do you have trouble with day-to-day activities such as bathing, preparing meals, shopping, managing finances, etc.?: No Are you currently unemployed and looking for a job?: No Are you interested in more education?: No Please select the resources that you would like help with: None Currently or been in a relationship where the following occur: No concerns repor [place] THRIVE Score: 0 AUDIT C Alcohol Use Questionnaire (AUDIT-C) 1. How often do you have a drink containing alcohol?: Monthly or less 2. How many drinks containing alcohol do you have on a typical day when you are drinking?: 1 or 2 3. How often do you have six or more drinks on one occasion?: Never Total Score: 1 LIZETTE-7 AMB Questionnaire LIZETTE-7 Date LIZETTE - 7 assessed: 03/12/25 Feeling nervous, anxious, or on edge: 2 = More than half the days Not being able to stop or control worryin = Several days Worrying too much about different things: 2 = More than half the days Trouble relaxin = More than half the days Being so restless that it is hard to sit still: 2 = More than half the days Becoming easily annoyed or irritable: 2 = More than half the days Feeling afraid as if something awful might happen: 0 = Not at all Total LIZETTE-7 score (0-4 normal; 5-9 mild; 10-14 moderate; 15-21 severe): 11 Source: Developed by Drs. Jj Bellamy, Chayito Richardson, Viral Quesada and colleagues, with an educational ame from [employer]. LIZETTE-7 Assessment Billing LIZETTE-7 Assessment Tool: LIZETTE-7 Assessment 83936 Review of Systems Const All systems reviewed & are unremarkable except as noted in HPI and below Card Denies chest pain at rest, Denies chest pain with activity, Denies edema, Denies irregular heart rhythm, Denies claudication, Denies dyspnea, Denies dyspnea on exertion, Denies orthopnea, Denies paroxysmal nocturnal dyspnea and Denies slow heart rate Resp Denies cough, Denies dyspnea and Denies dyspnea on exertion GI Denies abdominal pain, Denies change in bowel habits, Denies excessive flatus, Denies nausea and Denies vomiting Physical exam (Primary Care) Vital Signs: Last Vital Signs Pulse 66 03/12/25 08:31 BP 118/76 03/12/25 08:31 Pulse Ox 99 03/12/25 08:31 Oxygen Delivery Method Room Air 03/12/25 08:31 BMI result Body Mass Index 28.9 Tobacco/Smoking Status: Tobacco use Status Tobacco use date assessed 03/12/25 03/12/25 08:33 Patient Tobacco Use Status Never used Tobacco 03/12/25 08:33 e-Cigarette/Vaping Use Former Use 03/12/25 08:33 PHQ-9: PHQ-9 Score PHQ-9: Total score 10 03/12/25 08:33 Depression Screening Interpretation: Positive Depression Screening Follow-up: Existing condition, Community Mental Health Worker F/U and Follow-up Visit Requested Thrive Assessment: Date of Thrive Assessment Date Thrive assessed 03/12/25 03/12/25 08:33 Currently or been in a relationship where the following occur: No concerns reported HENMT Head: Yes normal to inspection, Yes normocephalic and Yes atraumatic Ears: external ears normal Eyes General: appearance normal, both eyes and all related structures Eyelids: Yes eyelids normal Conjunctivae: conjunctivae normal Neck Neck: Yes normal visual inspection and Yes supple Resp Effort & Inspection: normal respiratory effort Auscultation: clear to auscultation bilaterally Cardio Jugular venous distension: no JVD Rate: regular rate Rhythm: regular rhythm Heart sounds: S1 normal heart sound present and S2 normal heart sound present GI Inspection: Yes normal to inspection Palpation (GI): Soft to palpation and nontender Auscultation: normal bowel sounds Skin General skin exam: no rashes or lesions noted Neuro General: no focal motor deficits Extrem General: Yes full ROM Psych Appearance: grossly normal Coding Level of Care Code Est Pt Prev Care 18-39y(99330) Diagnoses Annual physical exam Z00.00 Moderate major depression F32.1 Additional Codes PHQ-9 - 12840 - PHQ-9 Billing: Yes ([id number]) LIZETTE-7 Assessment Billing - LIZETTE-7 Assessment Tool: LIZETTE-7 Assessment 91645 ([id number]) Time Spent (min) 30 Assessment & Plan Assessment & Plan (1) Annual physical exam: Code(s): Z00.00 - Encounter for general adult medical examination without abnormal findings Category: Medical (2) Moderate major depression: Code(s): F32.1 - Major depressive disorder, single episode, moderate Category: Medical Plan Repeat in a year. Continue counseling.
--- OUTSIDE RECORDS SUMMARY | 2025-03-12 09:35 | XMS_ITS | Clinical Summary ---
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 Name Role Phone Unavailable Primary Care Provider Unavailabl e Immunizations Immunization Administration Dates Next Due DTaP 12/09/2003, 2,07/11/2000, 000,02/08/2000 Hep B, ped/adol 09/26/2000,01/12/2000,1999 Hib (PRP-T) 03/25/2001, 1,04/18/2000, 000 IPV 12/09/2003, 1,04/18/2000, 000 Influenza 05/06/2008, 7,05/07/2003, 003,05/27/2002 Influenza, intranasal, trivalent 05/17/2012,02/24 MMR 03/09/2005,03/25/2001 Meningococcal Conj (Menactra) MCV4P 02/06/2017,0 03/15/2011 Pneumococcal Conjugate 03/25/2001,2000,07/11/2000, Tdap 03/15/2011 Varicella 04/25/2007,12/31/2000 Family History Relation Name Status Comments Father Alive Maternal Grandmother Mother Alive Mother: Thyriod disease Other Alive Paternal Grandfather Alive Paternal Grandmother Alive Pat GMo ther: Breast cancer Social History Tobacco Use Types Packs/Day Years Used Date Smoking Tobacco: Never Assessed Comments Unknown Sex and Gender Information Value Date Recorded Sex Assigned at Not on file Legal Sex Female 5:43 PM EST Gender Identity Not on file Sexual Orientation Not on file Last Filed Vital Signs Vital Sign Reading Time Taken Comments Blood Pressure 112/63 02/06/2017 12:00 AM EDT Pulse 76 02/06/2017 12:00 AM EDT Temperature 37.2 C (98.9 F) 02/06/2017 12:00 AM EDT Respiratory Rate - - Oxygen Saturation - - Inhaled Oxygen Concentration - - Weight 67.9 kg (149 lb 9.7 oz) 02/06/2017 12:00 AM EDT Height 160 cm (5' 3 ) 02/06/2017 12:00 AM EDT Body Mass Index 26.5 02/06/2017 12:00 AM EDT Plan of Treatment Health Maintenance Due Date Last Done Comments HPV Vaccines (1 - 3-dose series) 12/07/2014 DTaP,Tdap,and Td Vaccines (7 - Td or Tdap) 03/15/2021 03/15/2011, 12/09/2003, 10/18/2001, Additional history exists Influenza Vaccines (#1) 2025 05/17/20 12, 03/15/2011, 05/06/2008, Additional history exists COVID-19 Vaccine () 02/23/2025 Hepatitis B Vaccines Completed 09/26/2000, 01/12/2000, 1999 HIB Vaccines Completed 03/25/2001, 06/25, 04/18/2000, Additional history exists Pneumococcal Vaccine Completed 03/25/2001, 09/26/2000, 07/11/2000, Additional history exists IPV Vaccines Completed 12/09/2003, 02/2001, 04/18/2000, Additional history exists MMR Vaccines Completed 03/09/2005, 03/25/2001 Varicella Vaccines Completed 04/25/2007, 12/31/2000 Meningococcal Vaccine Completed 02/06/2017, 011 Hepatitis A Vaccines Aged Out No long er eligible based on patient's age to complete this topic Men B Vaccine Aged Out No longer elig ible based on patient's age to complete this topic Procedures * Due to [place] Virtual Paper law, this organization might not be sharing sensitive test results. Procedure Name Priority Date/Time Associated Diagnosis Comments CHLAMYDIA TRACHOMATIS, AMPLIFIED Routine 02/07/2017 12:00 AM EDT from Last 3 Months or Most Recently Relevant to Health Maintenance Results * Due to [place] Virtual [employer] law, this organization might not be sharing sensitive test results. * Chlamydia trachomatis, Amplified (02/07/2017 12:00 AM EDT) C.TRACHOMATIS PCR Not Detected CONVERTED LABS Comment: Randi Ochoa 02/06/2017 04:40:51 PM > , Specimen labeled and sent to [facility] [employer] 02/07/2017 01:25:17 PM > Negative Reason: Received -[facility] Lab Order Veterans Adviser 02/07/2017 Narrative CONVERTED LABS - 02/07/2017 12:00 AM EDT Chlamydia trachomatis detection by PCR us [employer] NP LAB MICROBIOLOGY - GENERAL ORDER MECHE Final Result CONVERTED LABS from Last 3 Months or Most Recently Relevant to Health Maintenance
--- OUTSIDE RECORDS SUMMARY | 2025-03-12 09:35 | XMS_ITS | Clinical Summary ---
Author Organization [facility] Address [address] [place], [place] [id number] Phone Care Team Providers Care Geophysical Prospector Name Role Phone Alexandra Gaxiola MD Primary Care Provid er Allergies No known active allergies Medications No known medications Active Problems No known active problems Immunizations Immunization Administration Dates Next Due DTaP 12/09/2003, 2,07/11/2000,04/18/20 00,02/08/2000 Hepatitis B 09/26/2000,01/12/2000,1999 Hib,PRP-T 03/25/2001, 1,04/18/2000,02/08/20 00 IPV 12/09/2003, 1,04/18/2000,02/08/20 Influenza quadrivalent nasal 05/17/2012,03/15/20 11 Influenza, Unspecified Formulation 05/06,04/25/2007,05/07/2003,07/01/19 03,05/27/2002 MMR 03/09/2005,03/25/2001 Meningococcal MCV4P 02/06/2017,03/15/2011 Pneumococcal conjugate, PCV 7 03/25/2001 ,09/26/2000,07/11/2000,04/18/20 00 Tdap 03/15/2011 Varicella 04/25/2007,12/31/2000 Social History Tobacco Use Types Packs/Day Years Used Date Smoking Tobacco: Never Smokeless Tobacco: Never Tobacco Cessation:Counseling Given: Not Answered Education Answer Date Recorded Are you interested in more education? Not on britni e 10/20/2022 Are you concerned about learning? Not on file 10/20/2022 No 10/20/2022 No 10/20/2022 Digital Access Answer Date Recorded No 11/18/2022 No 11/18/2022 Reliable internet access at home? Not on file 11/18/2022 Device with a working camera? Not on file Comments Unknown Sex and Gender Information Value Date Recorded Sex Assigned at Not on file Legal Sex Female 12:21 PM EDT Gender Identity Not on file Sexual Orientation Not on file Last Filed Vital Signs Vital Sign Reading Time Taken Comments Blood Pressure 116/80 01/08/2023 1:07 PM EDT Pulse 81 01/08/2023 1:07 PM EDT Temperature 37 C (98.6 F) 01/08/2023 1:07 PM EDT Respiratory Rate 18 01/08/2023 1:07 PM EDT Oxygen Saturation 98% 01/08/2023 1:07 PM EDT Inhaled Oxygen Concentration - - Weight 72.6 kg (160 lb) 01/08/2023 1:07 PM EDT Height - - Body Mass Index - - Plan of Treatment Health Maintenance Due Date Last Done Comments DEPRESSION SCREENING 2011 SMOKING Hx and SMOKELESS TOBACCO SCREENING 12/07/2012 HPV VACCINES (1 - 3-dose series) 12/07/2014 HEPATITIS C SCREENING 12/07/2017 HIV ONE-TIME SCREENING (18-65 YEARS) 12/07/2017 PAP SMEAR 12/07/2020 Adult Td,Tdap Booster 03/15/2021 03/15/2011 INFLUENZA VACCINE (#1) 2025 2, 03/15/2011, 05/06/2008, Additional history exists COVID-19 VACCINE ( season) 2025 11/09/2020, 10/19/2020 HIB VACCINES Completed 03/25/2001, 06/25, 04/18/2000, Additional history exists PNEUMOCOCCAL VACCINES (0-49 years) Aged Out 03/25/2001, 09/26/2000, 07/11/2000, Additional history exists No longer eligible based on patient's age to complete this topic MENINGOCOCCAL VACCINES (ACWY) Completed 02/06/2017, 03/15/2011 HEPATITIS A VACCINES Aged Out No long er eligible based on patient's age to complete this topic MENINGOCOCCAL VACCINES (B) Aged Out N o longer eligible based on patient's age to complete this topic Medical Devices Not on file Insurance BLUE CROSS OUT OF STATE PPO BLUE CROSS OUT OF STATE PPO BLUE CROSS OUT OF STATE PPO BLUE CROSS OUT OF STATE PPO BLUE CROSS OUT OF STATE PPO BLUE CROSS OUT OF STATE PPO Care Teams Geophysical Prospector Relationship Specialty Start Date End Date Alexandra Gaxiola MD [address] [place] [address] PCP - General Internal Medicine 01/08/23 Additional Source Comments The information contained in this document represents components of the legal health record. It is not the complete legal health record.[facility]
--- OUTSIDE RECORDS SUMMARY | 2025-03-12 09:35 | XMS_ITS | Encounter Summary ---
Author Organization [facility] Address [address] [place] [address] Phone Care Team Providers Care Ampoule Washing Machine Operator Name Role Phone Lisa Reynolds MD Primary Care Provider [phone] Encounter Details Date Type Department Care Team (Late st Contact Info) Description 01/31/2017 Conversion Encounter [facility] Pediatrics - [address], [address] [place] [address] Lisa Reynolds MD [address] [place] [address] Social History Tobacco Use Types Packs/Day Years Used Date Smoking Tobacco: Never Assessed Comments Unknown Sex and Gender Information Value Date Recorded Sex Assigned at Not on file Legal Sex Female 5:43 PM EST Gender Identity Not on file Sexual Orientation Not on file documented as of this encounter Plan of Treatment Not on file documented as of this encounter Visit Diagnoses Not on filedocumented in this encounter Care Teams Ampoule Washing Machine Operator Relationship Specialty Start Date End Date Lisa Reynolds MD [address] [place] [address] PCP - General Pediatrics 05/02/17 05/11/22 documented as of this encounter
== END 2025-03-12 09:07 | disposition home or self-care (01) ==
LOC: HO.HMCH 08:29
PROVIDERS: PCP Internal Medicine; Visit Provider Internal Medicine
DX: Z00.00 Encounter for general adult medical examination without abnormal findings (principal); F32.1 Major depressive disorder, single episode, moderate

== ENCOUNTER → 2025-03-12 08:28 | Outpatient (BNVA) | payer OTHER, SELFPAY | PROVIDERS: PCP Internal Medicine; Visit Provider Internal Medicine | DX: Z00.00 Encounter for general adult medical examination without abnormal findings (principal); F32.1 Major depressive disorder, single episode, moderate | CPT/HCPCS: 96127 ==

== ENCOUNTER 2025-06-08 09:41 | Outpatient (AMB) | payer OTHER, SELFPAY ==
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
[2025-06-08 09:47] VITALS: BP 108/66; BMI 29.8
== END 2025-06-08 11:32 | disposition home or self-care (01) ==
LOC: HO.HWSM 09:41
PROVIDERS: PCP Internal Medicine; Visit Provider Advanced Practice Midwife
DX: Z01.419 Encounter for gynecological examination (general) (routine) without abnormal findings (principal); Z12.4 Encounter for screening for malignant neoplasm of cervix; Z11.3 Encounter for screening for infections with a predominantly sexual mode of transmission; Z30.09 Encounter for other general counseling and advice on contraception
CPT/HCPCS: 99395; 99459

== ENCOUNTER 2025-06-08 09:41 | Outpatient (REF) | payer OTHER, SELFPAY ==
--- OUTSIDE RECORDS SUMMARY | 2025-06-08 17:54 | XMS_ITS | Encounter Summary ---
Author Organization [facility] Address [address] [place] [address] Phone Care Team Providers Care Storage Management Consultant Name Role Phone Lisa Reynolds MD Primary Care Provider [phone] Encounter Details Date Type Department Care Team (Late st Contact Info) Description 01/31/2017 Conversion Encounter [facility] Pediatrics - [address], [address] [place] [address] Lisa Reynolds MD [address] [place] [address] Social History Tobacco Use Types Packs/Day Years [...] on filedocumented in this encounter Care Teams Storage Management Consultant Relationship Specialty Start Date End Date Lisa Reynolds MD [address] [place] [address] PCP - General Pediatrics 05/02/17 05/11/22 documented as of this encounter
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
--- OUTSIDE RECORDS SUMMARY | 2025-06-08 17:55 | XMS_ITS | Clinical Summary ---
Author Organization [facility] Address [address] [place] [phone] Phone Care Team Providers Care Life Trainer Name Role Phone Unavailable Primary Care Provider [...] Additional history exists Influenza Vaccines (#1) 2025 05/17/20, 03/15/2011, 05/06/2008, Additional history exists COVID-19 Vaccine (2024- season) 2025 Hepatitis B Vaccines Completed 09/26/2000, 01/12/2000, 1999 [...] complete this topic Procedures * Due to [place] [employer] law, this organization might not be sharing sensitive test results. Procedure Name Priority Date/Time Associated Diagnosis Comments CHLAMYDIA TRACHOMATIS, AMPLIFIED Routine 02/07/2017 12:00 AM EDT from Last 3 Months or Most Recently Relevant to Health Maintenance Results * Due to [place] [employer] law, this organization might not be sharing sensitive test results. * Chlamydia trachomatis, Amplified (02/07/2017 12:00 AM EDT) C.TRACHOMATIS PCR Not Detected CONVERTED LABS Comment: Randi Ochoa 02/06/2017 04:40:51 PM > , Specimen labeled and sent to [facility] [employer] 02/07/2017 01:25:17 PM > Negative Reason: Received -[facility] Lab Order Mental Health Nurse Practitioner 02/07/2017 Narrative CONVERTED LABS - 02/07/2017 12:00 AM EDT Chlamydia trachomatis detection by PCR us [employer] NP LAB MICROBIOLOGY - GENERAL ORDER MECHE Final Result CONVERTED LABS from Last 3 Months or Most Recently Relevant to Health Maintenance
[2025-06-09 10:53] LABS: Bacterial Vaginosis PCR NEGATIVE (Negative); Candida Group PCR NOT DETECTED (Not Detect); Candida glab krusei PCR NOT DETECTED (Not Detect); Trichomonas vaginalis PCR NOT DETECTED (Not Detect)
[2025-06-09 12:00] LABS: CT PCR NOT DETECTED (Not Detect.); NG PCR NOT DETECTED (Not Detect.)
== END 2025-06-08 09:42 | disposition home or self-care (01) ==
LOC: HO.LNP 09:41
PROVIDERS: PCP Internal Medicine; Visit Provider Advanced Practice Midwife
DX: Z01.419 Encounter for gynecological examination (general) (routine) without abnormal findings (principal); Z20.2 Contact with and (suspected) exposure to infections with a predominantly sexual mode of transmission; Z30.09 Encounter for other general counseling and advice on contraception
CPT/HCPCS: 81515; 87491; 87591